=== PATIENT | male | born 1980 | race Caucasian/White ===

== ENCOUNTER 2018-06-24 21:58 | Emergency (ER) | payer OTHER ==
[~2018-06-24] VITALS: Ht 175.3 cm; Wt 78.1 kg
[2018-06-24 22:03] VITALS: Ht 175.3 cm; Wt 78.1 kg
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
[2018-06-25 00:16] VITALS: BP 130/81; PULSE 65; RESP 20
== END 2018-06-25 00:18 | disposition home or self-care (01) ==
LOC: E/R 21:58
DX: M54.2 Cervicalgia (principal)
CPT/HCPCS: 72050; 93005